=== PATIENT | male | born 1940 | race Caucasian/White ===

== ENCOUNTER 2021-01-12 16:19 | Emergency (ER) | payer MEDICARE, BC ==
[~2021-01-12] VITALS: Ht 180.3 cm; Wt 93.0 kg
[~2021-01-12 16:19] MED LIST: AZAT50TA2 PO; CLON0.5T4 PO; FESO8TAB PO; HYDR-3326 PO; MESTINON PO; METO100T14 PO; PRAV40TA PO; PRED20TA PO; QUET50TA PO; WARF7.5T23 PO
[2021-01-12 17:41] LABS: MEAN CORPUSCULAR HEMOGLOBIN 33.9 uug (23.8-33.4); MEAN CORPUSCULAR VOLUME 100.5 fL (73.0-96.2); PLATELET COUNT (AUTO) 115 K/uL (152-348)
[2021-01-12 17:48] LABS: CREATININE 1.3 mg/dL (0.6-1.3); POTASSIUM 3.9 mmol/L (3.5-5.1)
[2021-01-12 17:49] LABS: *BILIRUBIN,URIN NEGATIVE (NEGATIVE); *BLOOD, URINE 1+ (NEGATIVE); *CLARITY,URINE CLEAR (CLEAR); *COLOR,URINE YELLOW (YELLOW); *KETONES,URINE NEGATIVE (NEGATIVE); *UROBILINOGEN,URINE 0.2 E.U./dl (NORMAL); LEUKOCYTE ESTERASE ,URINE NEGATIVE (NEGATIVE); NITRITE, URINE NEGATIVE (NEGATIVE); UGLUCOSE 2+ (NEGATIVE)
[2021-01-12 17:54] LABS: BILIRUBIN,DIRECT 0.1 mg/dL (0.0-0.2); BILIRUBIN,TOTAL 0.4 mg/dL (0.2-1.0); TOTAL PROTEIN, SERUM 8.3 g/dL (6.4-8.2)
[2021-01-12] MEDS ORDERED: HYDROCODONE/APAP 10-325 MG TABLET PO ONE (18:00)
[2021-01-12 18:01] LABS: BACTERIA,URINE NONE SEEN /HPF (NONE SEEN); WBC,URINE 0-3 /HPF (0-3)
[2021-01-12] MEDS ORDERED: HYDROCODONE/APAP 10-325 MG TABLET ONE (18:08)
[2021-01-12] MEDS ORDERED: HYDR-3980 PO (18:43)
--- NOTE | 2021-01-12 18:49 | NUR ---
Patient discharged to home in stable condition with family. Written and verbal after care instructions given. Patient verbalizes understanding of instructions. Stressed follow up or return to ER for worsening s/s.
== END 2021-01-12 19:01 | disposition home or self-care (01) ==
LOC: ER 16:22
DX: S09.93XA Unspecified injury of face, initial encounter (principal); W19.XXXA Unspecified fall, initial encounter; Y92.89 Other specified places as the place of occurrence of the external cause; S81.811D Laceration without foreign body, right lower leg, subsequent encounter; W19.XXXD Unspecified fall, subsequent encounter; I71.4 Abdominal aortic aneurysm, without rupture; K86.1 Other chronic pancreatitis; I48.91 Unspecified atrial fibrillation; Z79.01 Long term (current) use of anticoagulants; Z85.46 Personal history of malignant neoplasm of prostate; Z86.73 Personal history of transient ischemic attack (TIA), and cerebral infarction without residual deficits; Z87.442 Personal history of urinary calculi; G70.00 Myasthenia gravis without (acute) exacerbation; Z79.899 Other long term (current) drug therapy; I10 Essential (primary) hypertension
CPT/HCPCS: 36415; 70030-TC; 83690; 85025; A4663